=== PATIENT | male | born 1950 | race Caucasian/White ===

== ENCOUNTER 2016-11-02 08:16 | Day surgery (SDC) | payer OTHER ==
[~2016-11-02] VITALS: Ht 182.9 cm; Wt 92.1 kg
[2016-11-02 09:32] VITALS: Ht 182.9 cm; Wt 92.1 kg
[2016-11-02] MEDS ORDERED: ATORVASTATIN PO (09:40)
[2016-11-02] MEDS ORDERED: LEVOTHYROXINE PO (09:40)
[2016-11-02] MEDS ORDERED: ASPI-535 PO (09:40)
[2016-11-02] MEDS ORDERED: PROPOFOL 40 ML ONE (10:12)
[2016-11-02] MEDS ORDERED: FENTAnyl 50 MCG/ML VIAL ONE (10:12)
[2016-11-02] MEDS ORDERED: MIDAZOLAM 1 MG/ML 2 ML INJ ONE (10:12)
[2016-11-02 10:21] VITALS: BP 119/67; PULSE 62; RESP 20
[2016-11-02 11:10] VITALS: BP 123/73; PULSE 58; RESP 18
--- NOTE | 2016-11-02 11:43 | GILP ---
DATE OF PROCEDURE: 11/02/2016 NAME OF PROCEDURE: Colonoscopy. SURGEON: Jeferson Ellis MD PREOPERATIVE DIAGNOSIS: Screening colonoscopy. POSTOPERATIVE DIAGNOSES 1. Colonoscopy all the way to the cecum. 2. Internal hemorrhoids. 3. No colon neoplasm was identified. INDICATION FOR THE PROCEDURE: Mr. Janusz Reddy is a 66-year-old male patient who was scheduled for screening colonoscopy. The procedure and possible complications are well explained to the patient. The patient understood and consented to the procedure. DESCRIPTION OF PROCEDURE: Under the influence of anesthesia, the colonoscope was carefully introduc ed in the rectum and under direct vision, it was advanced all the way to the cecum. FINDINGS: The patient had internal hemorrhoids. No colon neoplasm was identified. He tolerated the procedure very well and there was no complication from the procedure. At the end o f the procedure, he was awake with stable vital signs and he was discharged home to the care of his family. IMPRESSION: 1. Colonoscopy all the way to the cecum. 2. Internal hemorrhoids. 3. No colon neoplasm was identified. PLAN: Next screening colonoscopy in 10 years. Dictated By: JEFERSON GALVAN/ORTEGA Conf#: [id number] DID#: [id number] CC: JEFERSON ELLIS MD;*EndCC*
== END 2016-11-02 13:57 | disposition home or self-care (01) ==
LOC: GIL 08:16
PROVIDERS: ATTEND Internal Medicine Gastroenterology
DX: Z12.11 Encounter for screening for malignant neoplasm of colon (principal); K64.8 Other hemorrhoids
CPT/HCPCS: 45378; J2250; J3010; Z7610

== ENCOUNTER 2018-06-18 09:55 | Day surgery (SDC) | END 2018-06-18 13:25 | disposition home or self-care (01) ==